=== PATIENT | male | born 1950 | race Caucasian/White ===

== ENCOUNTER 2018-09-06 05:40 | Day surgery (SDC) | payer MEDICARE ==
[2018-09-05 11:04] VITALS: BMI 27.4
--- NOTE | 2018-09-05 15:31 | HP ---
HISTORY OF PRESENT ILLNESS: Mr. Buitrago is a friend of one of our patients, Emery Mccracken, and drove in from [place] today to discuss several years of progressive back and leg pain. He reports what sounds like classic symptoms of neurogenic claudication as well as bilateral L5 pains which are radicular in nature. He had an MRI of disk in [place] that reveals profound central canal stenosis at L2-3 with nerve root redundancy cephalad to this point. He also has bilateral lateral recess stenosis secondary to facet hypertrophy at L4-5 . He has already seen one neurosurgeon in [place] that recommended a staged multilevel fusion, but to discuss second opinion today. PAST MEDICAL HISTORY: Significant for hypercholesterolemia, kidney stones, osteoarthritis. PAST SURGICAL HISTORY: Hemorrhoidectomy, left total knee replacement, cataract surgery. CURRENT MEDICATIONS: Rapaflo, atorvastatin, Ocuvite, and hypertension medication unspecified. ALLERGIES: NO KNOWN DRUG ALLERGIES. PHYSICAL EXAMINATION: GENERAL: The patient is alert, oriented x3. NEUROLOGICAL: Gait is mildly antalgic. EXTREMITIES: Lower extremity motor exam is normal. ASSESSMENT: Lumbar stenosis with neurogenic claudication. PLAN: Dr. Gillette met with the patient, reviewed imaging, advocated for an L2-L5 decompression. He explained to the patient the risks, benefits, and alternatives to the procedure. The patient expressed understanding and elected to move forward with surgery as discussed. I do believe the patient is mentally competent and capable of making medical decisions for himself. We will move forward with surgery as planned. Job ID: [id number]
[2018-09-06] MEDS ORDERED: Clindamycin/D5W 900 mg/50 ml Premix Bag ONE (07:51)
[2018-09-06] MEDS ORDERED: Levofloxacin 500 mg/D5W 100 ml Premix Bag ONE (07:51)
[2018-09-06] MEDS ORDERED: Fentanyl 100 MCG/2 ML VIAL ONE ×2 (08:43→11:35)
[2018-09-06] MEDS ORDERED: Bupivacaine HCl 0.5%/Epinephrine 1:200,000/PF 30 ml Vial ONE (09:57)
[2018-09-06] MEDS ORDERED: HYDROmorphone 2 MG/ML VIAL ONE (10:24)
[2018-09-06] MEDS ORDERED: SUGAMMADEX SODIUM 500 MG/5 ML VIAL ONE (10:48)
[2018-09-06] MEDS ORDERED: Tamsulosin HCl 0.4 MG CAP ONE (11:24)
[2018-09-06] MEDS ORDERED: Ondansetron PF 4 MG/2 ML Vial ONE ×2 (11:35→16:23)
--- NOTE | 2018-09-06 11:50 | OP ---
DATE OF PROCEDURE: 09/06/2018 BEE WORKER: Kodak Woodard PA-C INDICATION: Pain. DIAGNOSIS: Lumbar stenosis. PROCEDURE PERFORMED: L2 through L5 lumbar decompression. ANESTHESIA: General. DESCRIPTION OF PROCEDURE: The patient was brought into the operating room and placed under general anesthesia. He was flipped from the supine to prone position on the operating room table. A linear incision was planned spanning L2 through L5. After prepping and draping and after an appropriate preoperative pause, the incision was created. The soft tissues were swept away from midline. Self-retaining retractors were placed in the wound for optimal exposure. After confirming the appropriate levels with C-arm fluoroscopy, an Adson rongeur was used to remove the spinous process of L3, L4, the inferior aspect of L2, and the superior aspect of L5. High-speed cutting drill bit as well as 2, 3, and 4 mm Kerrisons were then used to complete the laminectomy, which extended from the midportion of L2 down to the top of L5. The laminectomy was extended laterally to encompass the medial aspect of the facet joints at the segments. After decompressing the segment, the wound was copiously irrigated. Hemostasis was maintained throughout. A subfascial drain was placed and brought out through a separate puncture site. The wound was then closed in anatomic layers and a pressure dressing was applied. There were no known procedural complications. Job ID: [id number]
[2018-09-06] MEDS ORDERED: Promethazine HCl 25 MG/ML VIAL ONE (12:00)
[2018-09-06] MEDS ORDERED: Ondansetron ODT 4 MG TAB ONE (16:03)
[2018-09-06] MEDS ORDERED: Succinylcholine Chloride 20 MG/ML 10 ml SYRINGE FS ONE (16:23)
[2018-09-06] MEDS ORDERED: ePHEDrine 50 MG/ML VIAL ONE (16:23)
[2018-09-06] MEDS ORDERED: Glycopyrrolate 0.2 MG/ML 5 ML SYRINGE ONE (16:23)
[2018-09-06] MEDS ORDERED: Rocuronium Bromide 10 MG/ML (10ML VIAL) ONE (16:23)
[2018-09-06] MEDS ORDERED: Lidocaine 1% PF 5 ML VIAL ONE (16:23)
[2018-09-06] MEDS ORDERED: PROPOFOL 200 MG/20 ML VIAL ONE (16:23)
[2018-09-06] MEDS ORDERED: Dexamethasone 20 MG/5 ML VIAL ONE (16:23)
[2018-09-06] MEDS ORDERED: PHENYLEPHRINE-NS 100 MCG/ML 10 ML SYRINGE ONE (16:23)
== END 2018-09-06 18:50 | disposition home or self-care (01) ==
LOC: SDC 05:40
PROVIDERS: ATTEND Neurological Surgery
PROC: 0ST20ZZ Resection of Lumbar Vertebral Disc, Open Approach (ICD-10-PCS; principal; 2018-09-06)
DX: M48.062 Spinal stenosis, lumbar region with neurogenic claudication (principal); M19.90 Unspecified osteoarthritis, unspecified site; E78.00 Pure hypercholesterolemia, unspecified; N20.0 Calculus of kidney; Z79.899 Other long term (current) drug therapy
CPT/HCPCS: 76000; 93005; 93010; J0670; J1170; J1956; J2405; J2550; J3010; J3490; Q0162